=== PATIENT | female | born 1995 | race Caucasian/White ===

== ENCOUNTER 2018-09-18 08:13 | Emergency (ER) | payer SELFPAY ==
[~2018-09-18] VITALS: Ht 165.1 cm; Wt 90.0 kg
[2018-09-18 08:15] VITALS: BP 134/89
[2018-09-18] MEDS ORDERED: cyclobenzaprine 10mg tablet PO ONE (08:35)
[2018-09-18] MEDS ORDERED: CYCL-1 PO (08:40)
== END 2018-09-18 09:00 | disposition home or self-care (01) ==
LOC: ER 08:14
DX: S76.011A Strain of muscle, fascia and tendon of right hip, initial encounter (principal); Z79.899 Other long term (current) drug therapy; X58.XXXA Exposure to other specified factors, initial encounter; Y93.89 Activity, other specified; Y92.89 Other specified places as the place of occurrence of the external cause; Y99.8 Other external cause status
CPT/HCPCS: 99283

== ENCOUNTER 2019-09-12 08:16 | Emergency (ER) | payer MEDICAID, OTHER ==
[~2019-09-12] VITALS: Ht 165.1 cm; Wt 86.3 kg
[~2019-09-12 08:16] MED LIST: CYCL-1 PO
[2019-09-12 09:01] LABS: BASOPHILS # (AUTO) 0.1 X10'3 (0-0.2); BASOPHILS % (AUTO) 0.7 % (0-1); EOSINOPHILS # (AUTO) 0.3 X10'3 (0-0.9); EOSINOPHILS % (AUTO) 2.7 % (0-6); HEMATOCRIT 40.4 % (35.0-45.0); HEMOGLOBIN 13.5 g/dl (12.0-16.0); LYMPHOCYTES # (AUTO) 2.9 X10'3 (1.1-4.8); LYMPHOCYTES % (AUTO) 26.1 % (21-51); MEAN CORPUSCULAR HEMOGLOBIN 26.6 PG (27.0-31.0); MEAN CORPUSCULAR HGB CONC 33.5 g/dL (33.0-36.5); MEAN CORPUSCULAR VOLUME 79.3 FL (78-98); MONOCYTES # (AUTO) 0.6 X10'3 (0-0.9); MONOCYTES % (AUTO) 5.7 % (2-12); NEUTROPHILS # (AUTO) 7.1 X10'3 (1.8-7.7); NEUTROPHILS % (AUTO) 64.8 % (42-75); PLATELET COUNT 411 X10'3 (140-440); RED BLOOD COUNT 5.09 X10'6 (4.20-5.60); RED CELL DISTRIBUTION WIDTH 14.3 % (11.5-14.5); WHITE BLOOD COUNT 10.9 X10'3 (4.5-11.0)
[2019-09-12 09:10] LABS: ALANINE AMINOTRANSFERASE 43 U/L (12-78); ALBUMIN 3.6 G/DL (3.4-5.0); ALBUMIN/GLOBULIN RATIO 0.8 (1.1-1.5); ALKALINE PHOSPHATASE 129 IU/L (46-116); ANION GAP 10 (8-16); ASPARTATE AMINO TRANSFERASE 26 U/L (10-37); BILIRUBIN,TOTAL 0.3 MG/DL (0.1-1.0); BLOOD UREA NITROGEN 10 MG/DL (7-18); BUN/CREATININE RATIO 12.5 (6.6-38.0); CALCIUM 8.8 MG/DL (8.5-10.1); CHLORIDE 104 MMOL/L (99-107); GLUCOSE 101 MG/DL (70-104); LIPASE 118 U/L (73-393); SODIUM 138 MMOL/L (135-145); TOTAL CARBON DIOXIDE 23.6 MMOL/L (24-32); TOTAL PROTEIN 8.4 G/DL (6.4-8.2); eGFR 87 ML/MIN
[2019-09-12] MEDS ORDERED: normal saline 1000ML IV soln IVB ONE (09:20)
[2019-09-12] MEDS ORDERED: ondansetron/PF 4mg/2ml inj IV ONE (09:20)
[2019-09-12] MEDS ORDERED: ONDA4TAB6 PO (09:22)
[2019-09-12 09:52] LABS: CLARITY,URINE CLEAR (Clear); COLOR,URINE YELLOW (Yellow); GLUCOSE, URINE NEGATIVE (Neg); KETONES,URINE NEGATIVE (Neg); LEUKOCYTE ESTERASE ,URINE NEGATIVE (Neg); NITRITES, URINE NEGATIVE (Neg); OCCULT BLOOD,URINE NEGATIVE (Neg); PROTEIN,URINE NEGATIVE (Neg); UROBILINOGEN,URINE 0.2 E.U/dL (0.2-1.0)
[2019-09-12 09:53] LABS: URINE HCG NEGATIVE (NEG)
[2019-09-12 09:54] LABS: UA COLLECTION TYPE CLN CATCH MIDSTREAM
[2019-09-12 10:52] VITALS: BP 103/62
== END 2019-09-12 10:54 | disposition home or self-care (01) ==
LOC: ER 08:17
DX: R10.9 Unspecified abdominal pain (principal); R11.2 Nausea with vomiting, unspecified; Z72.89 Other problems related to lifestyle; Z79.899 Other long term (current) drug therapy
CPT/HCPCS: 36415; 80053; 81003; 81025; 83690; 85025; 96361; 96374; 99283; J2405; J7030

== ENCOUNTER 2024-10-07 11:16 | Emergency (ER) | payer MEDICAID, OTHER ==
[~2024-10-07] VITALS: Ht 165.1 cm; Wt 73.1 kg
[~2024-10-07 11:16] MED LIST changes: +ONDA4TAB6 PO
[2024-10-07 12:03] LABS: MEAN PLATELET VOLUME 8.5 FL (7.4-10.4); RED CELL DISTRIBUTION WIDTH 13.6 % (11.5-14.5)
[2024-10-07 12:14] LABS: CREATININE 0.69 MG/DL (0.40-0.90); TOTAL CARBON DIOXIDE 22.6 MMOL/L (24-32); eCRCL 106 ML/MIN; eGFR > 90 ML/MIN
--- NOTE | 2024-10-07 15:01 | Physician Documentation ---
History of Present Illness Chief Complaint: Abdominal Pain w/vomiting Stated Complaint: VOMITING Time Seen by MD: 14:34 Primary Medical Doctor: none Mode of Arrival: POV, Ambulatory HPI Patient is seen today with complaints of epigastric abdominal pain that started this morning after she 1st developed a migrainous headache last night and states she was up all night vomiting. She admits to multiple episodes of vomiting and states this has caused her epigastric abdominal discomfort. Patient complains of continued migrainous headache with photophobia. She denies any chest pain or shortness of breath or diarrhea. She has no other concern or complaint at this time. Medication Reconciliation Allergies: Coded Allergies: No Known Allergies (Unverified , 09/12/19) Scheduled Ondansetron Hcl (Zofran), 1 TAB PO Q8H Scheduled PRN Cyclobenzaprine* (Cyclobenzaprine*), 1 TAB PO TID PRN for pain Past Medical History Past Medical History: No Pertinent History Past Surgical History: no surgical history Alcohol Use: Occasionally Drug Use: none Lives In: Home Review of Systems Constitutional: Denies: chills, fever, weakness Eyes: Denies: pain, blurred vision ENT: Denies: ear pain, nose pain, throat pain, mouth pain Respiratory: Denies: cough, shortness of breath Cardiovascular: Denies: chest pain, palpitations Gastrointestinal: Denies: abdominal pain, nausea, vomiting Genitourinary: Denies: burning, dysuria Female Genitalia: Denies: vaginal discharge, pelvic pain Neurological: Denies: headache, dizziness Musculoskeletal: Denies: pain, swelling Integumentary: Denies: rash, lesions Allergic/Immunologic: Denies: hives, itching Hematologic/Lymphatic: Denies: no symptoms reported Psychiatric: Denies: depression, anxiety Physical Exam Vital Signs: Temperature: 97.7, Source: Temporal, Heart Rate: 46, Respiratory Rate: 15, BP: 161/85, Pulse Oximetry: 99, Weight: 73.100 Oxygen Flow Rate: 0 Progress Results/Orders Results/Orders Vital Signs 10/07/24 10/07/24 10/07/24 10/07/24 11:30 11:55 13:45 13:53 Temp 97.7 97.7 Pulse 73 73 46 Resp 20 18 16 15 B/P (MAP) 146/88 161/85 (110) 161/85 (110) Pulse Ox 99 99 99 O2 Flow Rate 0 Laboratory Tests Test 10/07/24 11:49 White Blood Count 22.9 H Red Blood Count 4.71 Hemoglobin 14.3 Hematocrit 41.6 Mean Corpuscular Volume 88.2 Mean Corpuscular Hemoglobin 30.3 Mean Corpuscular Hemoglobin Concent 34.4 Red Cell Distribution Width 13.6 Platelet Count 399 Mean Platelet Volume 8.5 Neutrophils (%) (Auto) 94.3 H Lymphocytes (%) (Auto) 3.0 L Monocytes (%) (Auto) 2.5 Eosinophils (%) (Auto) 0 Basophils (%) (Auto) 0.2 Neutrophils # (Auto) 21.6 H Lymphocytes # (Auto) 0.7 L Monocytes # (Auto) 0.6 Eosinophils # (Auto) 0.0 Basophils # (Auto) 0.0 CBC Comment Sodium Level 143 Potassium Level 3.5 Chloride Level 106 Carbon Dioxide Level 22.6 L Anion Gap 14 Blood Urea Nitrogen 7 Creatinine 0.69 Estimated GFR/1.73 m2 > 90 BUN/Creatinine Ratio 10.1 Glucose Level 140 H Calcium Level 9.4 Total Bilirubin 0.7 Aspartate Amino Transf (AST/SGOT) 18 Alanine Aminotransferase (ALT/SGPT) 19 Alkaline Phosphatase 117 H Total Protein 8.5 H Albumin 4.3 Globulin 4.2 Albumin/Globulin Ratio 1.0 L Lipase 13 L Chemistry Comments Medical Decision Making Findings Patient is seen today with complaints of epigastric abdominal pain that started this morning after she 1st developed a migrainous headache last night and states she was up all night vomiting. She admits to multiple episodes of vomiting and states this has caused her epigastric abdominal discomfort. Patient complains of continued migrainous headache with photophobia. She denies any chest pain or shortness of breath or diarrhea. She has no other concern or complaint at this time. Patient was given Toradol 30 mg IV, Compazine 10 mg IV, Benadryl 50 mg IV, 1 L of normal saline, As well as acetaminophen a 1000 mg IV. Patient afterwards is feeling much better and wants to go home. Patient states her abdominal pain is significantly improved. Patient states her nausea and vomiting have resolved and she wants to go home. Patient will follow up with primary care in 3-5 days if no better as needed sooner. Return to ED with any worsening, concerning or changing symptoms. Prescription of sumatriptan sent to patient's pharmacy. As well as Tylenol and ibuprofen as needed and Zofran. Departure Disposition: HOME / SELF CARE / HOMELESS Impression: Primary Impression: Migraine headache Qualified Codes: G43.909 - Migraine, unspecified, not intractable, without status migrainosus Condition: Improved Discharge Instructions: Migraine Headache Additional Instructions: Patient was given Toradol 30 mg IV, Compazine 10 mg IV, Benadryl 50 mg IV, 1 L of normal saline, As well as acetaminophen a 1000 mg IV. Patient afterwards is feeling much better and wants to go home. Patient states her abdominal pain is significantly improved. Patient states her nausea and vomiting have resolved and she wants to go home. Patient will follow up with primary care in 3-5 days if no better as needed sooner. Return to ED with any worsening, concerning or changing symptoms. Prescription of sumatriptan sent to patient's pharmacy. As well as Tylenol and ibuprofen as needed and Zofran. Referrals: NO PRIMARY CARE PROVIDER (PCP) Prescriptions ONDANSETRON ODT 4mg tablet (ONDANSETRON ODT) 4 Mg Tab.rapdis 4 MG PO BID for 7 Days, #14 TAB Prov: DANIEL SOMMER 10/07/24 Sumatriptan Succinate* (Imitrex Tab*) 25 Mg Tablet 1 TAB PO PRN PRN for headache for 9 Days, #9 TAB Prov: DANIEL SOMMER 10/07/24 Acetaminophen (Tylenol Extra Strength) 500 Mg Tablet 2 TAB PO Q6H PRN PRN for pain or fever for 7 Days, #56 TAB Prov: DANIEL SOMMER 10/07/24 Ibuprofen (Ibuprofen) 800 Mg Tablet 1 TAB PO Q8H for pain for 10 Days, #30 TAB 0 Refills Prov: DANIEL SOMMER 10/07/24 Signature Scribe Signature: No scribe Attestation: No scribe DANIEL SOMMER Oct 07, 2024 15:01
[2024-10-07] MEDS: normal saline 1000ml 1,000 ML IV STA (15:22)
[2024-10-07] MEDS: acetaminophen 1,000mg/100ml IV 100 ML IV STA (15:22)
[2024-10-07] MEDS: ketorolac trometh 30MG/ML vial 30 MG/ML VIAL IM STA (15:23)
[2024-10-07 15:43] LABS: URINE HCG NEGATIVE (NEG)
[2024-10-07 15:45] LABS: LEUKOCYTE ESTERASE ,URINE NEGATIVE (Neg); NITRITES, URINE NEGATIVE (Neg); OCCULT BLOOD,URINE SMALL (Neg)
[2024-10-07 15:48] LABS: UA COLLECTION TYPE CLN CATCH MIDSTREAM
[2024-10-07 15:55] LABS: MUCUS STRANDS MODERATE /LPF (Neg)
[2024-10-07 15:57] LABS: SQUAMOUS EPITHELIAL CELL,UR FEW /LPF (FEW)
[2024-10-07 16:01] LABS: AMORPHOUS PHOSPHATES 2+
[2024-10-07] MEDS ORDERED: IBUP-1986 PO (16:04)
[2024-10-07] MEDS ORDERED: ACET-1025 PO (16:04)
[2024-10-07] MEDS ORDERED: ONDA-243 PO (16:04)
[2024-10-07] MEDS ORDERED: SUMA25TA35 PO (16:04)
[2024-10-07 16:23] VITALS: BP 102/88; PULSE 70; RESP 16; TEMP 97.7; O2SAT 98
[2024-10-09] MEDS ORDERED: ONDA-243 PO (14:12)
== END 2024-10-07 16:24 | disposition home or self-care (01) ==
LOC: ER 11:16
DX: G43.909 Migraine, unspecified, not intractable, without status migrainosus (principal); R10.13 Epigastric pain
CPT/HCPCS: 36415; 80053; 81001; 81025; 83690; 85025; 96365; 96372; 96375; 99284; J0131; J0780; J1200; J1885; J7030

== ENCOUNTER 2025-02-13 08:14 | Emergency (ER) | payer OTHER ==
[~2025-02-13] VITALS: Ht 165.1 cm; Wt 71.8 kg
[~2025-02-13 08:14] MED LIST changes: +IBUP-1986 PO; +ONDA-243 PO
[2025-02-13 08:24] VITALS: TEMP 97.2
[2025-02-13 08:50] LABS: MEAN PLATELET VOLUME 8.4 FL (7.4-10.4); RED CELL DISTRIBUTION WIDTH 13.5 % (11.5-14.5)
[2025-02-13 08:55] LABS: OCCULT BLOOD,URINE NEGATIVE (Neg)
--- NOTE | 2025-02-13 08:55 | Physician Documentation ---
History of Present Illness ~ General Chief Complaint: Abdominal Pain w/vomiting Stated Complaint: VOMITING Time Seen by MD: 08:23 Primary Medical Doctor: none Source: patient Mode of Arrival: POV Exam Limitations: no limitations History of Present Illness Initial Comments Patient is a 29-year-old female with history of cyclical vomiting presenting to the ED for evaluation of nausea, vomiting with associated abdominal pain. Patient states that her stomach is on fire." She also admits to smoking marijuana for the past few days. She states that she has been trying to stop but does not see a difference in nausea/vomiting when she stopped. Patient denies having any diarrhea, constipation, dysuria. There are no other questions, concerns or complaints at this time. Medication Reconciliation Allergies: Coded Allergies: No Known Allergies (Unverified , 02/13/25) Scheduled Ibuprofen (Ibuprofen), 1 TAB PO Q8H ONDANSETRON ODT 4mg tablet (Ondansetron Odt), 4 MG PO BID Ondansetron Hcl (Zofran), 1 TAB PO Q8H Scheduled PRN Cyclobenzaprine* (Cyclobenzaprine*), 1 TAB PO TID PRN for pain Past Medical History Past Medical History: No Pertinent History Past Surgical History: cholecystectomy Smoking Status: Unknown if ever smoked Alcohol Use: Occasionally Drug Use: marijuana Lives In: Home Review of Systems ROS ROS: Constitutional: Negative for fever and chills. HENT: Negative for sore throat and rhinorrhea. Eyes:Negative for pain and redness. Respiratory: Negative for cough and shortness of breath. Cardiovascular: Negative for chest pain and palpitations. Gastrointestinal: Abdominal pain, nausea, vomiting Genitourinary: Negative for dysuria and hematuria. Musculoskeletal: Negative for acute back pain and acute neck pain. Skin: Negative for rash and pruritus. Neurological: Negative for acute numbness or weakness. Physical Exam Physical Exam Vital Signs: Temperature: 97.2, Source: Temporal, Heart Rate: 94, Respiratory Rate: 20, BP: 149/85, Pulse Oximetry: 98, Weight: 71.800 Oxygen Flow Rate: 0 Physical Exam PHYSICAL EXAM: General Appearance: WDWN, No Distress, Cooperative, Awake Head: No Trauma. Scalp Normal Eyes: Lids normal, conjunctiva normal ENT: Mucous membranes normal, facial bones normal, lips normal, oropharynx normal Neck: Normal active FROM, non-tender with ROM, no meningeal signs, No JVD Back: Normal active FROM, non-tender with ROM, no CVAT Resp: Normal resp rate, normal flow, lungs clear to auscultation, no resp distress, no retractions Heart: Reg rhythm, no murmur Abd: Soft, 1+ epigastric TTP, no guarding, no rebound, no mass, no McBurney's point, negative Mejia's Musc/Skel: No chest wall tenderness, Normal ROM UE's and LE's, No acute bone/joint abnormality or tenderness Skin: Normal color, no petechia/purpura, no rash Extremities: No edema Neuro: Motor 5/5 & Symmetric Bilat, CN 2-12 grossly intact and symmetric bilat. Oriented x4, speech normal. Psych: Mood & Affect: Normal, Depressed: 0, Awareness & insight normal Progress Results/Orders Results/Orders Completed Orders - DONAVON FERRER MD Hcg, Ur Ql (02/13/25 08:28) Cbc/Diff (02/13/25 08:28) BMP (02/13/25 08:28) Lipase (02/13/25 08:28) CMP (02/13/25 08:28) Haloperidol Lact. (Haldol) (02/13/25 08:50) Ondansetron Inj. (Zofran 4mg/2ml Vial) (02/13/25 08:50) Normal Saline 1000ml (0.9% Sodium Chlori (02/13/25 08:50) Ua W/Microscopic, Cult If Ind (02/13/25 08:35) Metoclopramide Inj (Reglan Inj) (02/13/25 10:05) Morphine 4mg/Ml Inj. (Morphine Inj.) (02/13/25 10:05) Vital Signs 02/13/25 02/13/25 02/13/25 02/13/25 08:24 09:06 09:46 10:03 Temp 97.2 Pulse 94 55 54 Resp 20 16 15 14 B/P (MAP) 149/85 122/75 (91) 119/62 (81) Pulse Ox 98 98 100 O2 Flow Rate 0 0 02/13/25 02/13/25 10:19 12:51 Pulse 50 Resp 14 14 B/P (MAP) 149/85 Pulse Ox 100 Laboratory Tests Test 02/13/25 08:35 02/13/25 08:41 Urine Specimen Description Non-specified Urine Color Yellow Urine Clarity Slightly cloudy Urine pH 7.0 Urine Specific [place] 1.020 Urine Protein Negative Urine Glucose (UA) Negative Urine Ketones 40 H Urine Occult Blood Negative Urine Nitrite Negative Urine Bilirubin Negative Urine Urobilinogen 0.2 Urine Leukocyte Esterase Negative Urine RBC 0-2 Urine WBC 0-4 Urine Squamous Epithelial Cells Moderate Urine Bacteria Few Urine Mucus Moderate Urine Culture Indicated Not ind Volume Urine Centrifuged 8 ml Urine HCG, Qualitative Negative Urine Comment Low volume White Blood Count 24.7 H Red Blood Count 4.66 Hemoglobin 14.3 Hematocrit 41.1 Mean Corpuscular Volume 88.1 Mean Corpuscular Hemoglobin 30.6 Mean Corpuscular Hemoglobin Concent 34.8 Red Cell Distribution Width 13.5 Platelet Count 400 Mean Platelet Volume 8.4 Neutrophils (%) (Auto) 91.8 H Lymphocytes (%) (Auto) 4.3 L Monocytes (%) (Auto) 3.6 Eosinophils (%) (Auto) 0.1 Basophils (%) (Auto) 0.2 Neutrophils # (Auto) 22.7 H Lymphocytes # (Auto) 1.1 Monocytes # (Auto) 0.9 Eosinophils # (Auto) 0.0 Basophils # (Auto) 0.0 CBC Comment Sodium Level 144 Potassium Level 3.4 L Chloride Level 108 H Carbon Dioxide Level 23.5 L Anion Gap 13 Blood Urea Nitrogen 9 Creatinine 0.88 Estimated GFR/1.73 m2 75 BUN/Creatinine Ratio 10.2 Glucose Level 131 H Calcium Level 9.3 Total Bilirubin 0.6 Aspartate Amino Transf (AST/SGOT) 21 Alanine Aminotransferase (ALT/SGPT) 22 Alkaline Phosphatase 133 H Total Protein 8.6 H Albumin 4.3 Globulin 4.3 Albumin/Globulin Ratio 1.0 L Lipase 18 Chemistry Comments Medical Decision Making Additional information obtaine: family Findings Patient with similar episodes in the past with and without THC use Differential Diagnosis Patient is a 29-year-old female with history of cyclical vomiting presenting to the ED for evaluation of nausea and vomiting with associated abdominal pain. Review of patient's past records show that she was seen on 10/09/[address] Grover for cyclical vomiting. ER COURSE -I have reviewed the triage note. History obtained from patient and family member -All Labs, if applicable, independently reviewed by me I checked in EMR for old Records -Summary of additional information obtained from old records or from a source other than the patient: Previous episodes of significant leukocytosis greater than 20 Repeat Evaluation: Re-evaluated patient at 12:30 p.m. Additional REPEAT EVALUATION: Results and plan of care discussed with patient, patient understands and is agreeable to plan and disposition MEDICAL DECISION MAKIN-year-old female presents complaining of abdominal pain and vomiting does report using THC due to feeling stressed out about social issues, denies any headache, neck pain, fever, diarrhea, blood in urine, stool or emesis, patient is clinically isn't nonsurgical abdomen, doubtful appendicitis, cholecystitis, patient has been treated with IV fluids and ant iemetics and has significantly improved, agrees to return tomorrow for repeat evaluation, doubtful obstruction, perforation, meningitis Review of white blood cell count per old records show: 09/12/2019 - 10.9 H 10/07/2024 - 22.9 H 10/09/2024 - 16.4 H 02/13/2025 - 24.7 H Limited: (2 points from category 1 or one discussion with independent historian). Evaluation of Social determinants of health: (all aspects were assessed and highlighted in bold if applicable) SOCIAL DETERMINANTS OF HEALTH Problems related to: - Challenges with access to Primary Care or Outpatient Speciality Care - Psychosocial circumstances such as mental health issues - Social environment: such as violence or substance abuse Housing and economic circumstances: such as homelessness - Employment and unemployment: such as recently loss of employment Occupational exposures or injuries: Accessing ED outside of normal PCP hours - Language barrier: - Primary support group, including family circumstances: Provider and RN assisted discussions with patient (and carers/decision makers/family/friends when available and appropriate) regarding addressing these barriers to improve outcomes. Portions of this chart may have been created with [employer] voice recognition software. Occasional wrong-word or sound-alike substitutions may have occurred due to the inherent limitations of voice recognition software. Please read the chart carefully and recognize, using context, where these substitutions have occurred. Departure Time of Disposition: 12:31 Disposition: 01 HOME / SELF CARE / HOMELESS Impression: Primary Impression: Vomiting Qualified Codes: R11.2 - Nausea with vomiting, unspecified Additional Impression: THC abuse Condition: Stable Discharge Instructions: Nausea and Vomiting, Adult, [id number] Additional Instructions: Please come back to the ED for re-evaluation with Dr. Ferrer tomorrow on 02/14/2025 after 6:00 p.m. Follow up with your primary care provider regarding today's visit. We wish you a rapid recovery. Referrals: NO PRIMARY CARE PROVIDER (PCP) Education Educated: Patient Educated regarding: diagnosis, treatment Signature Scribe Signature: Scribed for Donavon Ferrer MD by Lety Laurent . 02/13/25 09:30 Attestation: The note accurately reflects work and decisions made by me.Donavon Ferrer MD 02/13/25 DONAVON FERRER MD Feb 13, 2025 08:55 LETY WELLS Feb 13, 2025 09:34
[2025-02-13 08:56] LABS: LEUKOCYTE ESTERASE ,URINE NEGATIVE (Neg)
[2025-02-13 08:57] LABS: URINE HCG NEGATIVE (NEG)
[2025-02-13] MEDS: haloperidol lactate 5mg/ml inj IM ONE (08:57)
[2025-02-13] MEDS: ondansetron/PF 4mg/2ml inj IV ONE (08:59)
[2025-02-13] MEDS: normal saline 1000ml 1,000 ML IV ONE (09:01)
[2025-02-13 09:03] LABS: UA COLLECTION TYPE NON-SPECIFIED
[2025-02-13 09:05] LABS: CREATININE 0.88 MG/DL (0.40-0.90); TOTAL CARBON DIOXIDE 23.5 MMOL/L (24-32); eCRCL 83 ML/MIN; eGFR 75 ML/MIN
[2025-02-13 09:08] LABS: NITRITES, URINE NEGATIVE (Neg)
[2025-02-13 09:09] LABS: MUCUS STRANDS MODERATE /LPF (Neg); SQUAMOUS EPITHELIAL CELL,UR MODERATE /LPF (FEW)
[2025-02-13] MEDS: morphine 4 MG/ML inj SYRINge IV ONE (10:19)
[2025-02-13] MEDS: metoclopramide 5 mg/ml inj IV ONE (10:20)
[2025-02-13 12:51] VITALS: BP 149/85; PULSE 50; RESP 14; O2SAT 100
== END 2025-02-13 12:53 | disposition home or self-care (01) ==
LOC: ER 08:14
DX: F12.10 Cannabis abuse, uncomplicated (principal); R11.10 Vomiting, unspecified; Z56.0 Unemployment, unspecified; Z59.00 Homelessness unspecified; Z90.49 Acquired absence of other specified parts of digestive tract; Z79.899 Other long term (current) drug therapy; Z72.89 Other problems related to lifestyle
CPT/HCPCS: 36415; 80053; 81001; 81025; 83690; 85025; 96361; 96372; 96374; 96375; 99285; J1630; J2270; J2405; J2765; J7030